=== PATIENT | male | born 1985 | race Caucasian/White ===

== ENCOUNTER 2022-10-14 02:17 | Emergency (ER) | payer BC, OTHER ==
[~2022-10-14] VITALS: Ht 170.2 cm; Wt 106.6 kg
[2022-10-14] MEDS ORDERED: MEDROL4 M2 PO (02:28)
[2022-10-14] MEDS ORDERED: ALBUTEROL/IPRATROPIUM 3 ML NEB NEB ONE (02:30)
== END 2022-10-14 04:00 | disposition home or self-care (01) ==
LOC: ER 02:25
DX: R06.02 Shortness of breath (principal); J45.909 Unspecified asthma, uncomplicated; R05.9 Cough, unspecified; F41.9 Anxiety disorder, unspecified; Z20.822 Contact with and (suspected) exposure to COVID-19
CPT/HCPCS: 94640; 94760; 94799; 99283; U0002

== ENCOUNTER 2024-11-06 02:01 | Emergency (ER) | payer BC ==
[~2024-11-06] VITALS: Ht 170.2 cm; Wt 113.4 kg
[~2024-11-06 02:01] MED LIST: MEDROL4 M2 PO
[2024-11-06 02:10] VITALS: TEMP 99.6
[2024-11-06] MEDS: KETOROLAC TROMETHAMINE 30 MG/ML VIAL IV STA (02:40)
[2024-11-06 03:03] LABS: BASOPHILS % 0.6 % (0.0-1.0); EOSINOPHILS # (AUTO) 0.3 (0.0-0.4); EOSINOPHILS % 3.8 % (0.0-6.0); HEMATOCRIT 46.8 % (38.2-49.6); HEMOGLOBIN 15.2 g/dL (14.0-18.0); LYMPHOCYTES # (AUTO) 1.7 (1.0-3.2); LYMPHOCYTES % 24.4 % (18.0-39.1); MEAN CORPUSCULAR HEMOGLOBIN 29.3 pg (28-32); MEAN CORPUSCULAR HGB CONC 32.5 g/dL (31-35); MEAN CORPUSCULAR VOLUME 90.3 fL (81-99); MONOCYTES # (AUTO) 0.6 (0.2-0.8); MONOCYTES % 8.9 % (4.4-11.3); NEUTROPHILS # (AUTO) 4.2 (2.1-6.9); PLATELET COUNT 188 x10e3/uL (140-360); RED BLOOD COUNT 5.18 x10e6/uL (4.3-5.7); RED CELL DISTRIBUTION WIDTH 13.2 % (11.7-14.4); WHITE BLOOD COUNT 6.77 x10e3/uL (4.8-10.8)
[2024-11-06 03:26] LABS: ALANINE AMINOTRANSFERASE 28 IU/L (0-55); ALBUMIN 4.1 g/dL (3.5-5.0); ALBUMIN/GLOBULIN RATIO 1.3 (0.8-2.0); ALKALINE PHOSPHATASE 57 IU/L (40-150); ANION GAP 16.6 mmol/L (8-16); BILIRUBIN,TOTAL 0.3 mg/dL (0.2-1.2); BLOOD UREA NITROGEN 13 mg/dL (7-26); BUN/CREATININE RATIO 12 (6-25); CALCIUM 8.8 mg/dL (8.4-10.2); CARBON DIOXIDE 21 mmol/L (22-29); CHLORIDE 106 mmol/L (98-107); CREATINE KINASE 335 IU/L (30-200); CREATININE, SERUM 1.05 mg/dL (0.72-1.25); EST GLOMERULAR FILTRATION RATE 93 ML/MIN (>=60); GLUCOSE 117 mg/dL (74-118); POTASSIUM 3.6 mmol/L (3.5-5.1); SODIUM 140 mmol/L (136-145); TOTAL PROTEIN 7.3 g/dL (6.5-8.1)
[2024-11-06 03:27] LABS: STREPTOCOCCUS GRP A ANTIGEN NEGATIVE (NEGATIVE)
[2024-11-06 03:29] LABS: INFLUENZA A AG POSITIVE (NEGATIVE); INFLUENZA B AG NEGATIVE (NEGATIVE)
[2024-11-06 03:31] LABS: CORONAVIRUS COVID-19 AG NEGATIVE (NEGATIVE)
[2024-11-06 03:34] LABS: TROPONIN I < 0.001 ng/mL (0-0.300)
[2024-11-06 03:43] VITALS: PULSE 85; RESP 18; O2SAT 94
[2024-11-06] MEDS: ALBUTEROL/IPRATROPIUM 3 ML NEB NEB STA (03:45)
[2024-11-06] MEDS ORDERED: PREDNISONE20 MG PO (03:52)
[2024-11-06] MEDS ORDERED: VENTOLIN HFA18 GM INH (03:52)
[2024-11-06] MEDS ORDERED: AZITHROMYCIN250 MG PO (03:52)
[2024-11-06] MEDS ORDERED: TAMIFLU75 MG PO (03:53)
[2024-11-06 03:56] VITALS: PULSE 87; RESP 18
[2024-11-06 03:58] VITALS: PULSE 88; RESP 20; O2SAT 97
== END 2024-11-06 04:05 | disposition home or self-care (01) ==
LOC: ER 02:18
DX: R50.9 Fever, unspecified (principal); J10.1 Influenza due to other identified influenza virus with other respiratory manifestations; R07.89 Other chest pain; R06.02 Shortness of breath; R05.9 Cough, unspecified; J45.909 Unspecified asthma, uncomplicated; F41.9 Anxiety disorder, unspecified; Z11.52 Encounter for screening for COVID-19; R94.31 Abnormal electrocardiogram [ECG] [EKG]; Z87.19 Personal history of other diseases of the digestive system
CPT/HCPCS: 36415; 71045; 80053; 82550; 83518; 83690; 83880; 84484; 85025; 87070; 87428; 93005; 94640; 94799; 99284; J1885